=== PATIENT | female | born 1980 | race Caucasian/White ===

== ENCOUNTER 2016-11-23 11:57 | Emergency (ER) | payer MEDICAID ==
[~2016-11-23] VITALS: Wt 64.5 kg
[~2016-11-23 11:57] MED LIST: AMO500 PO; D-ME118S6 PO; D-ME473S2 PO; IBUP-1542 PO; PREN1TAB62 PO
--- NOTE | 2016-11-23 13:00 | ERD ---
ER Documentation Chief Complaint Date/Time DATE: 11/23/16 TIME: 12:59 Chief Complaint COUGH FEVER FOR THE PAST 4 DAYS. HPI 36-year-old female presents with cough and congestion for the last 4 days. Patient states her entire family has been sick with URI symptoms. Patient has a nonproductive cough for the last 4 days with no shortness of breath, fevers, chest pain, hemoptysis. ROS All systems reviewed and are negative except as per history of present illness. Medications Home Meds Active Scripts Ibuprofen* (Motrin*) 600 Mg Tab, 600 MG PO Q6, #14 TAB Prov:ESTRELLA RAYA MD 11/29/15 Dextromethorphan Hb-Promethazine Hcl* (Promethazine DM* Syrup) 473 Ml Syrup, 5 ML PO Q6 Y for COUGH for 7 Days, ML Prov:ESTRELLA RAYA MD 11/29/15 Amoxicillin* (Amoxicillin*) 500 Mg Cap, 500 MG PO TID for 10 Days, CAP Prov:ESTRELLA RAYA MD 11/29/15 Dextromethorphan Hb-Promethazine Hcl (Promethazine DM Syrup) 180 Ml Syrup, 5 ML PO Q6H Y for COUGH, #4 OZ Prov:ANNETTE NICOLE 09/17/15 Reported Medications Vit-Iron Fumarate-FA ( Vitamin Tablet) 1 Each Tablet, 1 EACH PO DAILY 08/24/13 Allergies Allergies: Coded Allergies: hydrocodone (Verified Allergy, Unknown, 11/23/16) PMhx/Soc Medical and Surgical Hx: pt denies Medical Hx History of Surgery: Yes () Anesthesia Reaction: No Hx Neurological Disorder: No Hx Respiratory Disorders: No Hx Cardiac Disorders: No Hx Psychiatric Problems: No Hx Miscellaneous Medical Probl: No Hx Alcohol Use: No Hx Substance Use: No Hx Tobacco Use: No Smoking Status: Never smoker FmHx Noncontributory with sick contacts at home Physical Exam Vitals Vital Signs Date Time Temp Pulse Resp B/P Pulse Ox O2 Delivery O2 Flow Rate FiO2 11/23/16 12:01 98.6 80 20 115/71 99 Physical Exam GENERAL: The patient is well developed and appropriate for usual state of health in no apparent distress HEENT: Pupils equal, round, and reactive to light. EOMI. There is no scleral icterus. NECK: C-spine is soft and supple, there is no meningismus. There is no cervical lymphadenopathy. LUNGS: Clear to auscultation bilaterally. There are no rales, wheezes or rhonchi. HEART: Regular rate and rhythm, no murmurs, clicks, rubs or gallops. Procedures/MDM Patient was taken to a room, seen and examined Medical decision making: Patient presents with straightforward URI symptoms. Although considered in the differential, patient is non-toxic and has no evidence of pneumonia, or significant bacterial disease. Patient will be treated with appropriate outpatient supportive care. D/C instructions have included precautionary recommendations. Departure Diagnosis: Primary Impression: Viral URI with cough Condition: Stable Patient Instructions: Preventing Common Respiratory Infections Additional Instructions: Return for any problems or concerns LYLY MARK Nov 23, 2016 13:00
== END 2016-11-23 13:10 | disposition home or self-care (01) ==
LOC: FTE 11:57
DX: J06.9 Acute upper respiratory infection, unspecified (principal)
CPT/HCPCS: 99282

== ENCOUNTER 2018-03-28 16:19 | Emergency (ER) | END 2018-03-28 18:15 | disposition home or self-care (01) ==